=== PATIENT | male | born 1990 | race Caucasian/White ===

== ENCOUNTER 2022-11-11 18:53 | Emergency (ER) | payer OTHER, SELFPAY ==
--- NOTE | 2022-11-11 19:25 | ED.URI ---
HPI - URI/Sore Throat General Chief Complaint: Upper Respiratory Infection Stated Complaint: rt ear pain/sorethroat,cough Time Seen by Provider: 11/11/22 19:28 History of Present Illness HPI Narrative: 32-year-old male presented for complaint of right ear pain sore throat, hoarse voice and sinus congestion worsening over the last 3 days. States cough is productive of green/brown sputum. Also states he has had a history of ruptured eardrum, and this feels like it is about to rupture. He denies known sick contacts. He is taking Mucinex, Benadryl, and ibuprofen for symptoms. He denies shortness of breath, wheezing, tinnitus, dizziness, nausea, vomiting, diarrhea, fevers or chills. Related Data Home Medications Medication Instructions Recorded Confirmed atorvastatin 20 mg tablet 20 mg PO DAILY 11/11/22 11/11/22 dextroamphetamine-amphetamine ER 15 mg PO DAILY 11/11/22 11/11/22 15 mg 24hr capsule,extend release (Adderall XR) Allergies Allergy/AdvReac Type Severity Reaction Status Date / Time No Known Allergies Allergy Verified 11/11/22 19:29 Review of Systems Review of Systems: per HPI Exam Narrative: GENERAL: Ill-appearing, no acute distress. EYES: conjunctivae clear ENT: Mucous membranes moist. Left TM pearly carrillo with normal light reflex; right TM erythematous and bulging with purulent effusion, no tragal tenderness. Oropharynx erythematous without lesions. Tonsils absent. No drooling, no trismus, uvula midline. No tripod positioning, hot potato voice, or soft palate swelling. NECK: Supple. No lymphadenopathy CHEST: Clear to auscultation, breath sounds equal. No respiratory distress, speaks in full sentences. HEART: Regular rate and rhythm. No murmur heard. SKIN: Warm, dry, no rash. NEURO: Alert and oriented x3. Course Course Emergency Course: Patient is aware of diagnosis, understands and agrees to treatment plan. Anticipatory guidance given. Patient agrees to follow-up as directed and is aware of reasons to seek care at the emergency department. Portions of this record may have been created with voice recognition software Level of Care: Express Care Visit Vital Signs Vital signs: Vital Signs Temperature 98.6 F 11/11/22 19:38 Pulse Rate 84 11/11/22 19:38 Respiratory Rate 18 11/11/22 19:38 Blood Pressure 141/79 H 11/11/22 19:38 Pulse Oximetry 100 11/11/22 19:38 Oxygen Delivery Room Air 11/11/22 19:38 Temperature 98.6 F 11/11/22 19:38 Pulse Rate 84 11/11/22 19:38 Respiratory Rate 18 11/11/22 19:38 Blood Pressure 141/79 H 11/11/22 19:38 Pulse Oximetry 100 11/11/22 19:38 Oxygen Delivery Room Air 11/11/22 19:38 MDM - URI/Sore Throat MDM Narrative Medical decision making narrative: Advise supportive treatments and signs/symptoms to go to the ER. Patient is appropriate for outpatient treatment and follow-up. Differential Diagnosis Differential diagnosis: Likely upper respiratory infection, otitis media, sinusitis, viral infection, influenza and pharyngitis Discharge Plan Discharge Clinical Impression: Otitis media Qualifiers: Otitis media type: suppurative Chronicity: acute Laterality: right Recurrence: non-recurrent Spontaneous tympanic membrane rupture: without spontaneous rupture Qualified Code(s): H66.001 - Acute suppurative otitis media without spontaneous rupture of ear drum, right ear Patient Disposition: Home, Self-Care Condition: Stable Instructions: Antibiotic Form, Ear Infection (ED) Additional Instructions: Take antibiotics as directed. Recommend antihistamine such as Benadryl, Zyrtec or Sierra for sinus congestion Flonase nasal spray, 1 spray in each nostril once daily until symptoms improve Symptomatic treatment includes: rest, fluids, and increase humidity of the air at home. Tylenol 1000mg every 8 hours as needed to reduce fever, pain Please schedule a follow-up visit with your personal physician for fu
[2022-11-11 19:38] VITALS: BP 141/79; PULSE 84; RESP 18; TEMP 37; O2SAT 100
== END 2022-11-11 19:42 | disposition home or self-care (01) ==
PROVIDERS: Emergency Provider Nurse Practitioner Family; PCP Student in an Organized Health Care Education/Training Program
DX: H66.001 Acute suppurative otitis media without spontaneous rupture of ear drum, right ear (principal)
CPT/HCPCS: 99213; G0463